=== PATIENT | male | born 1945 | race Caucasian/White ===

== ENCOUNTER 2017-08-08 10:44 | Emergency (ER) | payer MEDICARE, BC ==
--- NOTE | 2017-08-08 12:14 | RAD ---
HISTORY: Status post fall, left arm trauma COMPARISONS: None VIEWS: 2, Frontal and lateral views of the left forearm FINDINGS: BONE DENSITY: Normal. BONES: On the frontal projection, there is a questionable impacted fracture of the radial head JOINTS: There is no arthropathy. ALIGNMENT: There is no dislocation. SOFT TISSUES: Unremarkable. OTHER FINDINGS: None. IMPRESSION: QUESTIONABLE LEFT RADIAL HEAD FRACTURE. RECOMMEND CORRELATION WITH SITE OF PAIN AND CONSIDERATION OF DEDICATED IMAGING OF THE ELBOW
--- NOTE | 2017-08-08 12:38 | RAD ---
INDICATION: Left arm pain one day after a fall COMPARISON: None. TECHNIQUE: 4 views left elbow. REPORT: There is a horizontally oriented lucent line just distal to the left radial head with cortical discontinuity seen on the oblique view. The remaining visualized bones are intact and appropriately aligned. There is only a small left elbow joint effusion. IMPRESSION: Radiographic findings are consistent with a minimally displaced impacted left radial head fracture.
--- NOTE | 2017-08-08 13:07 | UC ---
Elbow Pain - HPI Summary HPI Summary: left elbow pain x 1 day s/p fall on his left arm one day ago c/o pain of the the left elbow radiating to his left wrist no swelling - History of Current Complaint Chief Complaint: UCUpperExtremity Stated Complaint: S/P FALL LEFT ARM INJURY Time Seen by Provider: 08/08/17 11:21 Hx Obtained From: Patient Onset/Duration: Days - 1, Traumatic, Still Present Severity Initially: Moderate Severity Currently: Moderate Location Of Pain: Is Discrete @ - elft elbow Character: Aching Aggravating Factor(s): Movement, Twisting Alleviating Factor(s): Rest Associated Signs And Symptoms: Negative: Swelling, Redness, Bruising, Fever, Weakness, Numbness/Tingling - Allergies/Home Medications Allergies/Adverse Reactions: Allergies Allergy/AdvReac Type Severity Reaction Status Date / Time Penicillins Allergy Itching Verified 08/08/17 11:19 Home Medications: Home Medications Aspirin [Aspirin 81 MG TAB] 81 mg PO DAILY 08/08/17 [History Confirmed 08/08/17] Atorvastatin* [Lipitor*] 40 mg PO DAILY 08/08/17 [History Confirmed 08/08/17] Fluticasone-Salmeterol 250-50* [Advair Diskus 250-50*] 1 puff INH BID 08/08/17 [ History Confirmed 08/08/17] Levothyroxine TAB* [Synthroid TAB*] 112 mcg PO DAILY 08/08/17 [History Confirmed 08/08/17] Nebivolol TAB (NF) [Bystolic TAB (NF)] 5 mg PO DAILY 08/08/17 [History Confirmed 08/08/17] Maple-3 Fatty Acids [Fish Oil] 1,000 mg PO DAILY 08/08/17 [History Confirmed 08/15] Omeprazole CAP* [Prilosec CAP* 20 MG] 20 mg PO DAILY 08/08/17 [History Confirmed 08/08/17] amLODIPine TAB* [Norvasc 5 mg TAB*] 5 mg PO DAILY 08/08/17 [History Confirmed ] buPROPion SR TAB* [Wellbutrin SR TAB*] 200 mg PO DAILY 08/08/17 [History Confirmed 08/08/17] PMH/Surg Hx/FS Hx/Imm Hx Cardiovascular History: Hypertension Respiratory History: COPD - Surgical History Surgical History: Unable to Obtain/Confirm - Family History Known Family History: Positive: Hypertension - Social History Alcohol Use: Occasionally Substance Use Type: None Smoking Status (MU): Former Smoker Type: Cigarettes When Did the Patient Quit Smoking/Using Tobacco: 5 years ago - Immunization History Most Recent Influenza Vaccination: yes 2016 Review of Systems Constitutional: Negative Skin: Negative Eyes: Negative ENT: Negative Respiratory: Negative Is Patient Immunocompromised?: No All Other Systems Reviewed And Are Negative: Yes Physical Exam Triage Information Reviewed: Yes Appearance: Well-Appearing, No Pain Distress, Well-Nourished Vital Signs: Initial Vital Signs Temp 98 F 08/08/17 11:12 Pulse 70 08/08/17 11:12 Resp 18 08/08/17 11:12 BP 134/82 08/08/17 11:12 Pulse Ox 95 08/08/17 11:12 Vital Signs Reviewed: Yes Eyes: Positive: Conjunctiva Clear ENT: Positive: Normal ENT inspection, Hearing grossly normal, Pharynx normal Neck exam: Normal Neck: Positive: Supple, Nontender, No Lymphadenopathy Respiratory Exam: Normal Respiratory: Positive: Chest non-tender, Lungs clear, Normal breath sounds Cardiovascular: Positive: RRR, No Murmur, Pulses Normal Musculoskeletal: Positive: Other: - left lower arm : no swelling, no erythe, + tenderness radial head, good ROM of the left forearm Elbow Pain Course/Dx - Differential Dx/Diagnosis Provider Diagnoses: fracture left radial head Discharge - Discharge Plan Condition: Stable Disposition: HOME Patient Education Materials: Elbow Fracture (ED) Referrals: Jagjit Carter MD [Medical Doctor] - As Soon As Possible Bernard Drake MD [Primary Care Provider] -
[2017-08-08 13:17] VITALS: BP 124/80
== END 2017-08-08 13:17 | disposition home or self-care (01) ==
LOC: UCCORT 10:44
DX: S52.122A Displaced fracture of head of left radius, initial encounter for closed fracture (principal); W19.XXXA Unspecified fall, initial encounter; I10 Essential (primary) hypertension; J44.9 Chronic obstructive pulmonary disease, unspecified; Z87.891 Personal history of nicotine dependence; Z88.0 Allergy status to penicillin
CPT/HCPCS: 99212; G0463